=== PATIENT | male | born 1960 | race Caucasian/White ===

== ENCOUNTER → 2023-10-24 14:30 | Outpatient (REF) | payer SELFPAY | LOC: RAD 14:30 | PROVIDERS: ATTENDING PHYSICIAN Nurse Practitioner Family; FAMILY PHYSICIAN Internal Medicine | DX: E78.2 Mixed hyperlipidemia (principal) | CPT/HCPCS: 75571 ==

== ENCOUNTER → 2025-04-23 14:21 | Outpatient (REF) | payer MEDICARE, OTHER, SELFPAY | LOC: RAD 14:21 | PROVIDERS: ATTENDING PHYSICIAN Nurse Practitioner Family; FAMILY PHYSICIAN Internal Medicine | DX: R00.2 Palpitations (principal); R09.89 Other specified symptoms and signs involving the circulatory and respiratory systems; R42 Dizziness and giddiness | CPT/HCPCS: 93880 ==